=== PATIENT | female | born 1995 | race Caucasian/White ===

== ENCOUNTER 2019-07-09 06:55 | Inpatient (IN) | payer OTHER ==
[~2019-07-09] VITALS: Ht 167.6 cm; Wt 115.7 kg
[2019-07-09] MEDS ORDERED: PRENATAL CAPLE1 EAC1 PO (10:15)
[2019-07-09] MEDS ORDERED: NIFEDIPINE20 MG PO (10:16)
[2019-07-09] MEDS ORDERED: LEVOTHYROXINE25 MCG PO (11:26)
[2019-07-09] MEDS ORDERED: TERBUTALINE SULF5 MG PO (11:27)
== END 2019-07-11 14:09 | disposition home or self-care (01) | DRG 788 ==
LOC: LDR 06:55 → OB/GYN 06:55 → O/R 10:40 → OB/GYN 10:59
PROVIDERS: ADMIT Specialist
PROC: 4A1HXCZ Monitoring of Products of Conception, Cardiac Rate, External Approach (ICD-10-PCS; 2019-07-09)
PROC: 10D00Z1 Extraction of Products of Conception, Low, Open Approach (ICD-10-PCS; principal; 2019-07-09 07:30)
DX: O76 Abnormality in fetal heart rate and rhythm complicating labor and delivery (principal); Z3A.37 37 weeks gestation of pregnancy; Z37.0 Single live birth